=== PATIENT | male | born 1965 | race Two or more races ===

== ENCOUNTER 2020-05-22 16:44 | Inpatient (IN) | payer MEDICAID, OTHER ==
[~2020-05-22] VITALS: Ht 170.2 cm; Wt 87.4 kg
[2020-05-22 18:18] LABS: Urine Bacteria NONE SEEN /hpf (None Seen); Urine Blood TRACE /uL (Negative); Urine Mucus FEW (None Seen); Urine Specific Gravity 1.006 (1.001-1.035); Urine WBC 11 /hpf (0 - 3)
[2020-05-22] MEDS ORDERED: cefTRIAXone 1GM/50ML D5W 50 ML IV ONE (19:15)
[2020-05-22 20:02] LABS: Albumin 4.2 g/dL (3.4-5.0); BUN/Creatinine Ratio 18.5; Calcium 9.3 mg/dL (8.5-10.1); Potassium 4.2 mmol/L (3.5-5.1)
[2020-05-22 20:05] LABS: Bilirubin, Total 0.3 mg/dL (0.2-1.0); Total Protein 8.4 g/dL (6.4-8.2)
[2020-05-22 20:06] LABS: Basophils # (auto) 0.1 10 ^3/uL (0-0.2); Basophils % (auto) 0.7 % (0.0-2.0); Eosinophils # (auto) 0.2 10 ^3/uL (0-0.8); Eosinophils % (auto) 1.7 % (0.0-7.0); Hematocrit 39.1 % (41.0-53.0); Hemoglobin 13.5 g/dL (13.5-17.5); Lymphocytes # (auto) 1.6 10 ^3/uL (0.4-5.4); Lymphocytes % (auto) 17.2 % (10.0-50.0); Mean Corpuscular Hgb Conc. 34.4 g/dL (32.0-36.0); Mean Corpuscular Volume 87.2 fL (80.0-100.0); Monocytes # (auto) 0.9 10 ^3/uL (0-1.3); Neutrophils # (auto) 6.6 10 ^3/uL (1.6-8.6); Neutrophils % (auto) 70.4 % (37.0-80.0); Nucleated Red Blood Cells % 0.1 %; Platelet Count (auto) 276 10^3/uL (140-450); Red Blood Cells 4.49 10^6/uL (4.5-5.90); White Blood Cell 9.4 10^3/uL (4.4-10.8)
[2020-05-22] MEDS ORDERED: TEMAZEPAM 15 MG CAP PO PRN (22:00)
[2020-05-22] MEDS ORDERED: ONDANSETRON HCL 4 MG/2 ML VIAL IV PRN (22:00)
[2020-05-22] MEDS ORDERED: ACETAMINOPHEN 325 MG TAB PO PRN (22:00)
[2020-05-22] MEDS ORDERED: TAMSULOSIN HYDROCHLORIDE 0.4 MG CAP PO ONE (22:15)
[2020-05-22] MEDS: FAMOTIDINE 20 MG TAB PO SCH (22:48)
--- NOTE | 2020-05-23 02:20 | NUR ---
[facility] admit from ER NATHAN MOORE admitted to [facility]. Patient oriented to Uyen Rodriguez, primary RN, unit, room, bed, and unit policies regarding patient care and visiting hours. Patient weighed by bedscale and encouraged to call if they need something. All questions and concerns addressed, patient verbalized understanding. Note:
[2020-05-23] MEDS ORDERED: TAMS0.4C36 PO (02:43)
[2020-05-23] MEDS ORDERED: CIPR500T4 PO (02:43)
[2020-05-23] MEDS ORDERED: ACET-1156 PO (02:43)
[2020-05-23 05:00] VITALS: BP 140/90
--- NOTE | 2020-05-23 07:30 | NUR ---
Opening Note Assumed pt care from NOC RN. Pt is a/ox4 with no s/s of distress or SOB. Pt is currently sitting upright in bed with mild c/o pain to L flank area, 11/01. Discussed POC with pt and pending Urology consult. Safety measures maintained with call light within reach, bed in lowest position and side rails up. Will continue to monitor for changes.
[2020-05-23 07:56] LABS: Basophils # (auto) 0.1 10 ^3/uL (0-0.2); Eosinophils # (auto) 0.2 10 ^3/uL (0-0.8); Eosinophils % (auto) 2.2 % (0.0-7.0); Hematocrit 37.7 % (41.0-53.0); Hemoglobin 12.8 g/dL (13.5-17.5); Lymphocytes # (auto) 1.6 10 ^3/uL (0.4-5.4); Lymphocytes % (auto) 21.2 % (10.0-50.0); Mean Corpuscular Hemoglobin 29.7 pg (28.0-32.0); Mean Corpuscular Hgb Conc. 33.9 g/dL (32.0-36.0); Mean Corpuscular Volume 87.6 fL (80.0-100.0); Monocytes # (auto) 0.9 10 ^3/uL (0-1.3); Monocytes % (auto) 12.8 % (0.0-12.0); Neutrophils # (auto) 4.7 10 ^3/uL (1.6-8.6); Neutrophils % (auto) 62.8 % (37.0-80.0); Platelet Count (auto) 265 10^3/uL (140-450); Red Blood Cells 4.31 10^6/uL (4.5-5.90); Red Cell Distribution Width 13.2 % (11.8-14.3); White Blood Cell 7.4 10^3/uL (4.4-10.8)
[2020-05-23 08:14] LABS: BUN/Creatinine Ratio 18.6; Potassium 3.9 mmol/L (3.5-5.1)
[2020-05-23] MEDS: FAMOTIDINE 20 MG TAB PO SCH ×2 (08:43→21:52)
--- NOTE | 2020-05-23 12:42 | NUR ---
Dr Diaz at Bedside MD to see pt. Pending urology consult and recommendation. No new orders at this time. Will continue to monitor.
--- NOTE | 2020-05-23 13:53 | NUR ---
Ashley CURRICULUM MANAGER At Bedside CURRICULUM MANAGER at bedside to see pt. Spoke with pt about need to place catheter. CURRICULUM MANAGER requests catheter placement and order foe glydo during placement. Will implement and continue to monitor.
[2020-05-23] MEDS ORDERED: LIDOCAINE 2% JELLY 11ml (GLYDO) UR ONE (14:00)
[2020-05-23] MEDS: SODIUM CHLORIDE 0.9% 1,000 ML IV SCH (14:37)
--- NOTE | 2020-05-23 14:38 | NUR ---
Escudero Insertion 16F escudero catheter inserted using sterile technique. Pt tolerated well. 500mL of pale yellow urine drained from catheter. Will continue to monitor voiding needs.
[2020-05-23] MEDS ORDERED: TAMSULOSIN HYDROCHLORIDE 0.4 MG CAP PO SCH (18:00)
--- NOTE | 2020-05-23 18:55 | NUR ---
Mild Hematuria Noted Mile light pink color noted in pt's escudero catheter. Pt denies any pain or discomfort. Pt is currently on fluids. Will endorse to NOC RN and continue to monitor.
[2020-05-23 22:00] VITALS: BP 120/82
[2020-05-24 06:05] VITALS: BP 133/86
[2020-05-24 07:11] LABS: Hematocrit 37.5 % (41.0-53.0); Hemoglobin 13.2 g/dL (13.5-17.5)
[2020-05-24 07:32] LABS: Calcium 8.8 mg/dL (8.5-10.1); Magnesium 2.1 mg/dL (1.6-2.6); Potassium 3.8 mmol/L (3.5-5.1)
[2020-05-24 07:35] LABS: BUN/Creatinine Ratio 21.3
[2020-05-24] MEDS: SODIUM CHLORIDE 0.9% 1,000 ML IV SCH (07:54)
[2020-05-24 09:00] VITALS: BP 131/85
[2020-05-24] MEDS: FAMOTIDINE 20 MG TAB PO SCH (10:09)
[2020-05-24 13:00] VITALS: BP 135/63
[2020-05-24] MEDS ORDERED: TAM04C PO (13:29)
--- NOTE | 2020-05-24 16:03 | NUR ---
Per MD re: HH listed on DC Discharge order for patient states "Home with Health Services" but there is no order for SS. Contacted the doctor and she said the patient is not going home with HH. He is to be DC'd with [place] leg bag and follow up with Dr. Mcfarland in one week.
--- NOTE | 2020-05-24 17:21 | NUR ---
Discharge Went over all discharge paperwork with patient. Answered all questions. Removed IV intact, no problems. Removed ID bands. Picked up medications from [facility] - patient used card to pay co-pay. Picked up patient's own medications from our pharmacy and provided to patient. Attached [place] leg bag and explained and demonstrated how to empty the bag. Patient to follow up with Dr. Mcfarland in one week. Information provided. Patient had his own car here and left with all personal belongings.
== END 2020-05-24 17:20 | disposition home or self-care (01) | DRG 501 ==
LOC: ER 16:44 → OVERFLOW 16:45 → WEST WING 05-23 02:11
PROVIDERS: ADMIT Nurse Practitioner; ATTEND Internal Medicine
DX: N40.1 Benign prostatic hyperplasia with lower urinary tract symptoms (principal); N17.0 Acute kidney failure with tubular necrosis; N13.8 Other obstructive and reflux uropathy; N13.39 Other hydronephrosis; N18.9 Chronic kidney disease, unspecified; Z87.891 Personal history of nicotine dependence; Z88.0 Allergy status to penicillin; R39.11 Hesitancy of micturition; R30.0 Dysuria
CPT/HCPCS: 36415; 74176; 80048; 80053; 80061; 81001; 83036; 83735; 84154; 85014; 85018; 85025; G0378

== ENCOUNTER → 2020-06-29 | Day surgery (SDC) | payer BC, MEDICAID ==
[2020-06-23 12:32] LABS: Basophils # (auto) 0 10 ^3/uL (0-0.2); Basophils % (auto) 0.5 % (0.0-2.0); Eosinophils # (auto) 0.1 10 ^3/uL (0-0.8); Eosinophils % (auto) 2.1 % (0.0-7.0); Hematocrit 38.7 % (41.0-53.0); Hemoglobin 12.9 g/dL (13.5-17.5); Lymphocytes # (auto) 1.8 10 ^3/uL (0.4-5.4); Lymphocytes % (auto) 25.9 % (10.0-50.0); Mean Corpuscular Hemoglobin 28.8 pg (28.0-32.0); Mean Corpuscular Hgb Conc. 33.4 g/dL (32.0-36.0); Mean Corpuscular Volume 86.3 fL (80.0-100.0); Monocytes # (auto) 0.7 10 ^3/uL (0-1.3); Monocytes % (auto) 10.2 % (0.0-12.0); Neutrophils # (auto) 4.1 10 ^3/uL (1.6-8.6); Neutrophils % (auto) 61.3 % (37.0-80.0); Platelet Count (auto) 606 10^3/uL (140-450); Red Blood Cells 4.49 10^6/uL (4.5-5.90); Red Cell Distribution Width 13.5 % (11.8-14.3); White Blood Cell 6.8 10^3/uL (4.4-10.8)
[2020-06-23 12:35] LABS: Urine Bacteria FEW /hpf (None Seen); Urine Blood 1+ /uL (Negative); Urine Mucus FEW (None Seen); Urine Specific Gravity 1.017 (1.001-1.035); Urine WBC 357 /hpf (0 - 3); Urine WBC Clumps PRESENT /hpf (None Seen)
[2020-06-23 12:47] LABS: INR 0.97 (0.9-1.15); Partial Thromboplastin Time 30.3 sec (23.0-31.2)
[2020-06-23 12:50] LABS: Albumin 3.5 g/dL (3.4-5.0); Calcium 9.8 mg/dL (8.5-10.1); Potassium 4.1 mmol/L (3.5-5.1)
[2020-06-23 12:53] LABS: BUN/Creatinine Ratio 18.4; Bilirubin, Total 0.2 mg/dL (0.2-1.0); Total Protein 8.5 g/dL (6.4-8.2)
[~2020-06-29] VITALS: Ht 182.9 cm; Wt 86.2 kg
[~2020-06-29] MED LIST: CIPROFLOXACIN 400MG/200ML 200 ML IV ONE; DexAMETHasone SOD PHOS 10MG/1ML VIAL INJ ONE; GLYCOPYRROLATE 0.2 MG/ML 1ML VIAL ONE; HYDROmorphone HCL 2 MG/ML VL IV PRN; LIDOCAINE 2% (LOCAL ANESTH.) PF 5ml SDV ONE; LIDOCAINE 4MG/ML IV SOLN 500 ML IV ONE; LIDOCAINE HCL 100 MG/5ML (2%) SYRG INJ IV ONE; METOCLOPRAMIDE HCL 5MG/ml INJ 2ml VIAL IV PRN; MIDAZOLAM HCL 1MG/1ML-2 ML VIAL ONE; MORPHINE SULFATE 4 MG/ML SYR/VIAL IV PRN; ONDANSETRON HCL 4 MG/2 ML VIAL ONE; PROPOFOL 10 MG/ML 20 ML IV ONE; ROCURONIUM 10MG/ML 10ML VIAL IV ONE; SUCCINYLCHOLINE CHLORIDE 20 MG/ML 10ML VIAL IV ONE; TAM04C PO; fentaNYL CITRATE 100 MCG/2 ML VL ONE
[2020-06-29 15:46] VITALS: BP 144/85
== END | disposition home or self-care (01) ==
LOC: SUR 10:04
PROVIDERS: ATTEND Urology
DX: N40.1 Benign prostatic hyperplasia with lower urinary tract symptoms (principal); F17.200 Nicotine dependence, unspecified, uncomplicated; Z88.0 Allergy status to penicillin; Z20.828 Contact with and (suspected) exposure to other viral communicable diseases; Z79.899 Other long term (current) drug therapy; Z98.890 Other specified postprocedural states
CPT/HCPCS: 36415; 52601; 80053; 81001; 85025; 85610; 85730; 88307; 88342; J0330; J0744; J1100; J2001; J2250; J2405; J2704; J3010; U0003